=== PATIENT | male | born 1995 | race African-American/Black ===

== ENCOUNTER 2017-01-17 09:09 | Emergency (ER) | payer OTHER ==
[~2017-01-17] VITALS: Ht 172.7 cm; Wt 71.8 kg
[2017-01-17 09:17] VITALS: BP 129/94
== END 2017-01-17 12:21 | disposition home or self-care (01) ==
LOC: EME 09:09
DX: S50.02XA Contusion of left elbow, initial encounter (principal); S50.312A Abrasion of left elbow, initial encounter; S16.1XXA Strain of muscle, fascia and tendon at neck level, initial encounter; V43.52XA Car driver injured in collision with other type car in traffic accident, initial encounter; Y92.410 Unspecified street and highway as the place of occurrence of the external cause
CPT/HCPCS: 72040; 73080; 99281; 99283